=== PATIENT | male | born 1970 | race Caucasian/White ===

== ENCOUNTER 2025-02-15 08:25 | Day surgery (SDC) | payer OTHER ==
[~2025-02-15] VITALS: Ht 185.4 cm; Wt 97.3 kg
[2025-02-15] VITALS (21 sets, daily range): BP systolic 111–178; BP diastolic 75–101
--- NOTE | 2025-02-15 09:48 | NUR ---
Ambulatory in Day Surgery. History, Chart, Medications and Allergies reviewed before start of procedure. Patient confirms NPO status and agrees with scheduled surgery. Patient States Post-Procedure ride home has been arranged.
--- NOTE | 2025-02-15 09:52 | NUR ---
PATIENTS WATCH REMOVED AND PLACED IN BELONGS BAG.
--- NOTE | 2025-02-15 10:52 | NUR ---
02/15/25 1052 Cirilo Nolasco CONFIRMED AND REVIEWED H&P, MEDCICATIONS, ALLERGIES, MEDICAL HISTORY, RESPIRATORY HISTORY, VITAL SIGNS, 3-LEAD EKG, CONSENTS, AND PHYSICIAN ORDERS. PATIENT CONFIRMS NPO STATUS AND AGREES WITH SCHEDULED PROCEDURE. MONITOR INTACT WITH CONTINUOUS PULSE OXIMETRY, CAPNOGRAPHY, 3-LEAD EKG, INTERMITTENT BP. SUPPLEMENTAL O2 TO BE TITRATED THROUGHOUT PROCEDURE TO MAINTAIN O2 SATURATION ABOVE 90%. PATIENT DETERMINED TO BE ASA APPROPRIATE FOR PROPOFOL SEDATION PRIOR TO START OF PROCEDURE BY DR. MORE
[2025-02-15] MEDS ORDERED: Midazolam HCl 1MG / ML 2ML Vial ONE (11:09)
--- NOTE | 2025-02-15 11:43 | NUR ---
Patient up to Ambulate independently. Gait steady. Discharge instructions reviewed with patient. Patient verbalizes understanding. Copy given to patient to take home. Discharged via wheelchair to private car for ride home WITH
== END 2025-02-15 11:45 | disposition home or self-care (01) ==
LOC: ORSCMMR 08:25 → ORD 09:00 → ORSCMMR 09:00
PROVIDERS: Internal Medicine Gastroenterology
PROC: 0DBP8ZX Excision of Rectum, Via Natural or Artificial Opening Endoscopic, Diagnostic (ICD-10-PCS; principal; 2025-02-15 09:00)
PROC: 0DBM8ZX Excision of Descending Colon, Via Natural or Artificial Opening Endoscopic, Diagnostic (ICD-10-PCS; principal; 2025-02-15 09:00)
DX: Z12.11 Encounter for screening for malignant neoplasm of colon (principal); I10 Essential (primary) hypertension; D12.4 Benign neoplasm of descending colon; K62.1 Rectal polyp; K57.30 Diverticulosis of large intestine without perforation or abscess without bleeding
CPT/HCPCS: 88305; J2250; J2704; J7120